=== PATIENT | female | born 1950 | race Hispanic/Latino ===

== ENCOUNTER → 2019-06-22 | Outpatient (CLI) | payer OTHER | END | disposition home or self-care (01) | LOC: RAH 13:48 | PROVIDERS: ATTEND Internal Medicine Cardiovascular Disease | DX: Z13.6 Encounter for screening for cardiovascular disorders (principal) | CPT/HCPCS: 75571 ==

== ENCOUNTER → 2023-12-17 | Outpatient (CLI) | payer MEDICARE | END | disposition home or self-care (01) | LOC: RAH 11:48 | PROVIDERS: ATTEND Physical Medicine & Rehabilitation | DX: M41.85 Other forms of scoliosis, thoracolumbar region (principal); M48.07 Spinal stenosis, lumbosacral region; M53.2X6 Spinal instabilities, lumbar region; M41.9 Scoliosis, unspecified; Z90.49 Acquired absence of other specified parts of digestive tract | CPT/HCPCS: 72082; 72114 ==

== ENCOUNTER → 2024-01-16 | Outpatient (CLI) | payer MEDICARE | END | disposition home or self-care (01) | LOC: RAH 14:11 | PROVIDERS: ATTEND Neurological Surgery | DX: M47.812 Spondylosis without myelopathy or radiculopathy, cervical region (principal); M48.02 Spinal stenosis, cervical region; G95.9 Disease of spinal cord, unspecified; M41.84 Other forms of scoliosis, thoracic region; M47.814 Spondylosis without myelopathy or radiculopathy, thoracic region; M48.04 Spinal stenosis, thoracic region | CPT/HCPCS: 72141; 72146 ==

== ENCOUNTER → 2024-01-17 | Outpatient (CLI) | payer MEDICARE | END | disposition home or self-care (01) | LOC: RAH 12:43 | PROVIDERS: ATTEND Neurological Surgery | DX: G31.89 Other specified degenerative diseases of nervous system (principal); G95.9 Disease of spinal cord, unspecified | CPT/HCPCS: 70551 ==

== ENCOUNTER → 2024-07-16 | Outpatient (CLI) | payer MEDICARE ==
--- NOTE | 2024-07-16 12:18 | HMCIMG ---
Exam Type: HIP BILAT 2VW Clinical Information: RIGHT LUMBAR RADICULOPATHY, LEG LENGTH DESCREPANCY, TENDINOPATHY OF RIGHT Comparison: None Findings: There is narrowing of the acetabular joint space and there is superior marginal osteophytosis and subchondral sclerosis consistent with degenerative changes of both hips. Bone density is preserved. No acute fractures or dislocations are seen. No blastic or lytic lesions or bones are identified. The soft tissues are unremarkable. Impression: Degenerative changes as noted. No acute pathology.
== END | disposition home or self-care (01) ==
LOC: RAH 11:09
PROVIDERS: ATTEND Physical Medicine & Rehabilitation
DX: M16.0 Bilateral primary osteoarthritis of hip (principal); M25.752 Osteophyte, left hip; M25.751 Osteophyte, right hip; M54.16 Radiculopathy, lumbar region; M21.752 Unequal limb length (acquired), left femur; M67.951 Unspecified disorder of synovium and tendon, right thigh
CPT/HCPCS: 73521

== ENCOUNTER → 2024-10-07 | Outpatient (CLI) | payer MEDICARE ==
--- NOTE | 2024-10-07 11:45 | HMCIMG ---
ANKLE COMP 3VWS LT HISTORY: Left ankle pain COMPARISON: None TECHNIQUE: 3 images of left ankle were obtained. FINDINGS: Orthopedic fixation plates and screws are seen traversing the distal tibia. Healing fractures are seen of the distal tibia and distal fibula. Joint space narrowing is seen. There is a calcaneal spur. There is no acute displaced fracture or dislocation. Degenerative changes are seen. IMPRESSION: 1. Findings as described above.
== END | disposition home or self-care (01) ==
LOC: RAH 09:04
PROVIDERS: ATTEND Physical Medicine & Rehabilitation
DX: S82.832D Other fracture of upper and lower end of left fibula, subsequent encounter for closed fracture with routine healing (principal); S82.302D Unspecified fracture of lower end of left tibia, subsequent encounter for closed fracture with routine healing; M19.072 Primary osteoarthritis, left ankle and foot; M77.32 Calcaneal spur, left foot; M25.872 Other specified joint disorders, left ankle and foot; M25.572 Pain in left ankle and joints of left foot; X58.XXXD Exposure to other specified factors, subsequent encounter
CPT/HCPCS: 73610

== ENCOUNTER → 2024-10-09 | Outpatient (CLI) | payer MEDICARE ==
--- NOTE | 2024-10-09 17:01 | HMCIMG ---
FOOT COMP 3+VWS LT HISTORY: Left foot pain COMPARISON: None TECHNIQUE: 3 images of the left lobe obtained. FINDINGS: Osteopenia is seen osteophytic fixation plate and screws are seen traversing the distal tibia. Healing fractures of degenerative changes is seen. There is no acute displaced fracture or dislocation. Degenerative changes are seen. IMPRESSION: 1. Findings as described above.
== END | disposition home or self-care (01) ==
LOC: RAH 10:22
PROVIDERS: ATTEND Physical Medicine & Rehabilitation
DX: M19.072 Primary osteoarthritis, left ankle and foot (principal); M79.672 Pain in left foot
CPT/HCPCS: 73630